=== PATIENT | female | born 2000 | race Caucasian/White ===

== ENCOUNTER 2022-09-04 06:15 | Emergency (ER) | payer SELFPAY ==
[2022-09-04] MEDS ORDERED: Lactated Ringers 1,000 ML IV ONE (06:48)
[2022-09-04] MEDS ORDERED: Acetaminophen 325 MG Tab PO ONE (06:49)
[2022-09-04] MEDS ORDERED: Morphine 2 MG/ML SYRINGE IVPUSH ONE (07:24)
[2022-09-04] MEDS ORDERED: Ondansetron 4 MG/2 ML SDV IVPUSH ONE ×2 (07:24→08:41)
[2022-09-04] MEDS ORDERED: Sodium Chloride 0.9% 1,000 ML IV ONE (08:41)
[2022-09-04] MEDS ORDERED: cefTRIAXone 2 GM in Sodium Chloride 0.9% 100 ML IV ONE (08:41)
[2022-09-04] MEDS ORDERED: Metoclopramide 10 MG/2 ML SDV IVPUSH ONE (10:38)
== END 2022-09-04 11:15 | disposition home or self-care (01) ==
LOC: JD.ED 06:15
DX: N12 Tubulo-interstitial nephritis, not specified as acute or chronic (principal); Z79.899 Other long term (current) drug therapy
CPT/HCPCS: 36415; 80053; 81001; 81025; 83690; 85025; 87086; 87088; 87186; 96361; 96365; 96375; 96376; 99284; A9270; J0696; J2270; J2405; J2765; J7030; J7120